=== PATIENT | female | born 1980 | race American Indian/Alaskan Native ===

== ENCOUNTER 2021-12-12 18:46 | Emergency (ER) | payer MEDICAID ==
--- NOTE | 2021-12-12 20:00 | Emergency Department Report ---
HPI - General Chief Complaint: Anxiety Time Seen by Provider: 12/12/21 19:42 - HPI HPI: 41-year-old -[place] female presents to the emergency department via EMS from home after she was seen by family hyperventilating and having episodes in which she was passing out. The patient just found out on Sunday that her oldest daughter, whom she had not seen in 1 year, just . Since that time the patient has been grieving. The patient's says that she has been continuously crying. When I have asked the patient what brings her to the emergency department she tells me about her daughter's and her notification from the medical care administrator, but also says that she does not know how she ended up in the emergency department or anything that has gone on on the past few days. However she also says that she knows that she has not eaten or dr ink in over this time. The patient's says that she has a history of bipolar disorder and schizophrenia but is not currently on medications for it. He says that they were dealing with the crying and grieving symptoms but today she began hyperventilating and having multiple episodes in which she appeared to pass out and/or go unresponsive. At the time of my examination the patient is awake, alert, oriented, AAO x3. She denies any suicidal or homicidal ideations or any hallucinations. ED Past Medical Hx - Past Medical History Hx Psychiatric Treatment: Yes (sCHIZOPHRENIA) ED Review of Systems ROS: Stated complaint: ANXIETY, CRYING, WORRIED ABOUT HER DAUGHTER Other details as noted in HPI Comment: All other systems reviewed and negative Constitutional: denies: chills, fever Cardiovascular: syncope. denies: chest pain Neurological: denies: headache, weakness Psychiatric: anxiety, depression. denies: auditory hallucinations, visual hallucinations, homicidal thoughts, suicidal thoughts Physical Exam - Physical Exam Physical Exam: GENERAL: The patient is well-developed well-nourished. HENT: Normocephalic. Atraumatic. Patient has moist mucous membranes. EYES: Extraocular motions are intact. NECK: Supple. Trachea is midline. CHEST/LUNGS: Clear to auscultation. There is no respiratory distress noted. HEART/CARDIOVASCULAR: Regular. There is no tachycardia. There is no murmur. ABDOMEN: Abdomen is soft, nontender. Patient has normal bowel sounds. SKIN: Skin is warm and dry. NEURO: The patient is awake, alert, and oriented. The patient has no focal neurologic deficits. Normal speech. MUSCULOSKELETAL: There is no tenderness or deformity. There is no limitation range of motion. PSYCH: Patient is tearful and at times displays emotional distress. ED Medical Decision Making - Medical Decision Making This patient presents to the emergency department with complaint of anxiety, depression and a severe grieving reaction after learning about the of her oldest daughter a few days ago when she was called by the medical care administrator. Initially the patient tells me that she does not remember how she got to the emergency department and that she "woke up in the emergency department." However the patient does appear to remember something about the last few days as she does express that she has not been eating or drinking. With the patient's permission, I spoke to her who tells me that the patient has been having emotional distress over the of their oldest daughter, even though she was somewhat estranged. The patient has been having sustained crying spells and then today she began having episodes in which she hyperventilated and then passed out. Patient also has a history of bipolar disorder and paranoid schizophrenia. However, at the time of my examination, the patient is awake, al ert, oriented, and asking for discharge home. While she still has moments in which she is tearful or even having crying spells, she is otherwise answering all questions appropriately and appears to have a normal decision-making capacity. She denies any suicidal or homicidal ideations. She has not shown any behavior consistent with acute psychosis. I spoke to both the patient and her and let them know that I am unable to look into the possible reasons for the recurrent syncopal episodes without a work-up that would most likely include blood work, EKG, or even potentially a CT scan of the head without contrast. She continues to state that she does not want to remain in the emergency department and wants to be discharged home to continue her grieving. The patient and her decided that they would forego any work-up and would like to leave. They understand the risk that there could be recurrent syncopal episodes and the patient could have some underlying arrhythmia, neurological condition, and ultimately she could have deficits, debility, coma, or even . Despite understanding the risks she has signed out AGAINST MEDICAL ADVICE. She understands that she can return to the emergency department at any time if she would like further evaluation or with any acute distress. She has been given outpatient referral for the [facility] facility. Critical Care Time: No Critical care attestation.: If time is entered above; I have spent that time in minutes in the direct care of this critically ill patient, excluding procedure time. ED Disposition Clinical Impression: Grieving Depression Qualifiers: Trimester: unspecified trimester Disposition: 07 LEFT AGAINST MEDICAL ADVICE Is pt being admited?: No Condition: Stable Instructions: Managing Loss, Adult, Complicated Grief Referrals: [facility] [Outside] - 2-3 Days Forms: AMA Form
== END 2021-12-12 21:00 | disposition left against medical advice (07) ==
LOC: ED 18:46
DX: F43.21 Adjustment disorder with depressed mood (principal); F32.A Depression, unspecified; F20.9 Schizophrenia, unspecified
CPT/HCPCS: 99283